=== PATIENT | female | born 1975 | race Caucasian/White ===

== ENCOUNTER 2020-07-22 05:58 | Observation (INO) ==
--- NOTE | 2020-07-01 12:20 | Anesthesiology Consultation ---
Date of Service July 01, 2020 Assessment & Plan (1) Encounter for pre-operative examination: - Per assessment on 07/01: Travel screen negative. No known COVID-19 positive contacts or current COVID-19 related symptoms. Surgeon arranging preop COVID testing (scheduled 07/16). Awaiting results. - Check test AM DOS - S/P D&C, hysteroscopy, IUD insertion: 05/03/19: [place] [facility] [place]ONV: significant improvement with 04/2019 D&C/hysteroscopy when scope patch used. Scope patch ordered for AM DOS. Chart Review Chart Review: Acceptable Risk for Surgery and Patient seen in Pre Admission Testing Teaching & Discussion Pre-Anesthesia Teaching/Discussion Notes: Instructed NPO after midnight before surgery,except medications with 15 cc of water. Medication instructions provided according to the PAT guidelines. History Surgery Operation Date: 07/22/20 07:30 Proposed Procedures p Robotic Total Laparoscopic Hysterectomy - Magi Garcia MD Height/Weight Height: 5 ft 7 in Weight: 76.7 kg Allergies Allergy/AdvReac Type Severity Reaction Status Date / Time No Known Drug Allergies Allergy Verified 07/01/20 10:56 Medications Home Medications Medication Instructions Recorded Confirmed Last Taken No Known Home Medications 03/17/19 07/01/20 Unknown Past Medical History Medical History Leiomyoma of uterus Menorrhagia with irregular cycle Migraine Exercise / Class Metabolic Activity II 4-5 Yardwork/Stairs/Walk up hill Past Family History Family History Mother Breast cancer, Onset Age: 50 Heart disease Father Family hx of colon cancer Sister Breast cancer, Onset Age: 53 Other Hypertension Past Surgical History Surgical History History of dilatation and curettage D&C, hysteroscopy, IUD insertion: 05/03/19: [place] [facility] [place] of hysteroscopy with resection of fibroid tumor excisions History of tooth extraction Previous section x3 S/P bilateral breast reduction Past Anesthesia History No Hx of Anesthesia Complications (except PONV) and No Family Hx of Anesthesia Complications (except mother post-op N/V) History of PONV No Hx of Motion Sickness and History of PONV (significant improvement with 04/2019 D&C/hysteroscopy when scope patch used) Social History Smoking Status: Never smoker Do You Dip or Chew Tobacco: No Hx Alcohol Use: Yes Alcohol type: beer alcohol intake frequency: a few times a month Hx Substance Use: No substance use type: does not use Review of Systems Patient denies chest pain, shortness of breath, dyspnea on exertion, fever, chills, cough, wheezing, palpitations. Physical Exam Vital Signs VITALS BP 105/73 P 70 TEMP 97.9 SP02 100%RA RESP 16 PHYSICAL Full neck and c-spine range of motion. Full TMJ range of motion. TMD 3 finger breaths Mallampati Score 2 Dentition: intact, + crowns (molars) Lungs: clear throughout to auscultation Cardiac: regular rate and rhythm, no murmurs noted Spine: normal Extremities: no edema Testing Laboratory Results 07/01/20 12:59 Blood Type O Negative 07/01/20 12:59 Antibody Screen NEGATIVE 07/01/20 12:59
[2020-07-01 14:13] LABS: Basophils # (auto) 0.05 K/uL (0-0.2); Basophils % (auto) 0.5 %; Eosinophils # (auto) 0.09 K/uL (0-0.5); Hematocrit (blood only) 39.6 % (37-47); Hemoglobin 13.4 g/dL (12.0-16.0); Immature Granulocytes # (auto) 0.03 K/uL (0.00-0.02); Immature Granulocytes % (auto) 0.3 %; Lymphocytes # (auto) 1.83 K/uL (1.2-3.4); Lymphocytes % (auto) 19.5 %; Mean Corpuscular Hemoglobin 32.1 pg (25-34); Mean Corpuscular Hgb Conc 33.8 g/dL (32-36); Mean Corpuscular Volume 94.7 fL (80-100); Mean Platelet Volume 10.5 fL (7.4-10.4); Monocytes # (auto) 0.79 K/uL (0.11-0.59); Monocytes % (auto) 8.4 %; Neutrophils % (auto) 70.3 %; Platelet Count 266 K/uL (130-400); RDW Coefficient of Variation 12.9 % (11.5-14.5); RDW Standard Deviation 44.8 fL (36.4-46.3); Red Blood Count 4.18 M/uL (4.2-5.4); White Blood Count 9.39 K/uL (4.8-10.8)
[2020-07-22] MEDS ORDERED: LR 15ML/HR IV SCH (06:00)
[2020-07-22] MEDS ORDERED: LACTATED RINGER'S 1,000 ML IV SCH ×2 (06:00→08:45)
[2020-07-22] MEDS ORDERED: ceFAZolin 2000MG 2,000 MG/15 ML SYR IV SCH (06:00)
[2020-07-22] MEDS ORDERED: ACETAMINOPHEN 1000 MG/100 ML IV IV ONE (06:22)
[2020-07-22] MEDS ORDERED: SCOPOLAMINE 1.5 MG TDSY TD ONE (06:34)
[2020-07-22] MEDS ORDERED: fentaNYL citrate 100 MCG/2 ML VIAL ONE (06:35)
[2020-07-22] MEDS ORDERED: MIDAZOLAM HCL 1 MG/ML 2ML VIAL ONE (06:35)
[2020-07-22] MEDS ORDERED: HYDROmorphone INJ 2 MG/ML SYR/VIAL ONE (06:40)
[2020-07-22] MEDS ORDERED: ROCURONIUM BROMIDE 10 MG/ML 5 ML VIAL IV ONE (06:45)
[2020-07-22] MEDS ORDERED: LIDOCAINE HCL 2% 2 ML VIAL/AMP(20MG/ML) INFIL ONE (06:45)
[2020-07-22] MEDS ORDERED: ONDANSETRON INJ 2 MG/ML 2 ML VIAL ONE (06:45)
[2020-07-22] MEDS ORDERED: DEXAMETHASONE SOD INJ 4 MG/ML VIAL ONE (06:45)
[2020-07-22] MEDS ORDERED: PROPOFOL IV EMULSION 10 MG/ML 20 ML VIAL IV ONE (06:45)
[2020-07-22] MEDS ORDERED: SUGAMMADEX SODIUM 200 MG/2 ML VIAL IV ONE (06:46)
[2020-07-22] MEDS ORDERED: ATROPINE SULFATE 0.1 MG/ML 10ML SYR IV PRN (07:27)
[2020-07-22] MEDS ORDERED: HYDROmorphone INJ 2 MG/ML SYR/VIAL IV PRN (07:27)
[2020-07-22] MEDS ORDERED: ePHEDrine sulfate 50 MG/ML AMP IV PRN (07:27)
[2020-07-22] MEDS ORDERED: ONDANSETRON INJ 2 MG/ML 2 ML VIAL IV PRN ×2 (07:27→07:32)
[2020-07-22] MEDS ORDERED: PROMETHAZINE HCL 6.25 MG in SODIUM CHLORIDE 0.9% 50 ML IV PRN (07:27)
[2020-07-22] MEDS ORDERED: PROMETHAZINE HCL 25 MG in SODIUM CHLORIDE 0.9% 50 ML IV PRN (07:32)
[2020-07-22] MEDS ORDERED: PROMETHAZINE HCL 12.5 MG in SODIUM CHLORIDE 0.9% 50 ML IV PRN (07:32)
[2020-07-22] MEDS ORDERED: KETOROLAC 30 MG/ML VIAL IV PRN (07:32)
[2020-07-22] MEDS ORDERED: ACETAMINOPHEN 325 MG TAB PO PRN (07:32)
[2020-07-22] MEDS ORDERED: MAGNESIUM HYDROXIDE SUSP 30 ML UDC PO PRN (07:32)
[2020-07-22] MEDS ORDERED: oxyCODONE/ACETAMINOPHEN 5mg/325mg TAB PO PRN (07:32)
[2020-07-22] MEDS ORDERED: MEPERIDINE HCL 50 MG/ML CARP IV PRN (07:32)
[2020-07-22] MEDS ORDERED: MEPERIDINE HCL 25 MG/ML CARP/VIAL IV PRN (07:32)
--- NOTE | 2020-07-22 07:32 | History & Physical Bridge Note ---
Date of Service July 22, 2020 History & Physical Bridge Note I have examined the patient, reviewed the History & Physical and in the interval since the performance of the History & Physical I have noted the following changes of clinical significance: no changes noted
[2020-07-22] MEDS ORDERED: KETOROLAC 30 MG/ML VIAL ONE (08:21)
[2020-07-22] MEDS ORDERED: METHYLENE BLUE IV STA (08:41)
[2020-07-22] MEDS ORDERED: DEXTROSE 5% IV STA (08:41)
--- NOTE | 2020-07-22 09:04 | Operative Report ---
PG Post Operative Report Pre & Post Diagnosis Operation Date: 07/22/20 07:30 Pre-Op Diagnosis: Fibroids, menorrhagia, failed multiple myomectomies and Mirena IUD placement Post-Op Diagnosis: Same I identified the patient and participated in the time-out.: Yes Procedure Operation Date: 07/22/20 07:30 Actual Procedures p Robotic Total Laparoscopic Hysterectomy, Bilateral Salpingectomy, cystoscopy - Magi Garcia MD Surgeon Magi Garcia MD Trimmer And Reinforcer None Estimated Blood Loss 25 Findings Consistent with Post-Op Diagnosis Specimens Uterus, Cervix, bilateral fallopian tubes Anesthesia Type General Complications none Disposition Accompanied Patient To Recovery: Yes Disposition: Recovery Room Description of Procedure The patient was brought to the operating room and placed on the table in dorsal lithotomy position with yellofin stirrups, prepped and draped in standard sterile fashion, and a hard time out was taken prior to proceeding. The bladder was emptied via placement of parmar catheter. The patient's mirena was removed intact, and then a V-Geekatoo uterine manipulator was placed in the usual manner. Attention was then turned to the abdomen where optical entry was made at the umbilicus without complication. The abdomen was insufflated and the patient was placed in steep Trendelenburg. Under direct visualization, right and left lower quadrant ports were placed without complication. Survey of the abdomen revealed thick adhesion to the left anterior uterine wall, evidence of prior tubal ligation, otherwise essentially normal anatomy. The robot was then docked and surgery proceeded with the surgeon at the console. The ureter was identified on each side and traced along its course into the pelvis. Each fallopian tube in turn was elevated, dissected off the mesosalpinx and left attached to the uterine cornu. Each utero-ovarian ligament was ligated and then divided. Each round ligament was ligated and then divided. The anterior leaflets of the broad ligament were dissected to create a bladder flap which was gently mobilized downward below the colpotomy cup ridge. Notably, during bladder flap creation, the anterior adhesion was divided - and at the base of this adhesion a small exophytic fibroid was revealed. Each uterine artery was skeletonized, ligated, and then divided. Circumferential colpotomy was then completed following the colpotomy cup guide. The cervix, uterus and bilateral tubes were then retrieved en bloc via the vagina. The vaginal cuff was then closed using V-Carolina suture in the typical running non-locked fashion. The needle was retrieved through a trocar, and suction/irrigation was then used to remove any debris and ensure good hemostasis at all working sites. After administration of IV Methylene Blue dye, cystoscopy was then utilized to examine the bladder dome which was free of suture or injury. The ureteral orifices were observed until a good strong jet of blue stained urine was seen from each. The bladder was then drained. The robot was then undocked, and abdominal trocar sites were closed using a UR6 at the umbilical fascia and 4-0 monocryl at each of the skin incisions. A dermabond dressing was applied to each site. A final vaginal exam ensured no materials were present in the vagina and the cuff was intact. The patient was then transferred in stable condition to the recovery room. I attest to the content of the Intraoperative Record and any orders documented therein. Any exceptions are noted below. SERVICE OFFICER Major Procedure Codes Hysterectomy 72029 TLH <250g +S/O
[2020-07-22] MEDS: fentaNYL citrate 100 MCG/2 ML VIAL IV PRN ×2 (09:27→09:32)
--- NOTE | 2020-07-22 09:57 | Anesthesiology Progress Note ---
Date of Service July 22, 2020 Anesthesia Post Procedure Vital Signs Vital Signs: Temp Pulse Pulse Resp BP Pulse Ox 07/22/20 09:50 36.3 C L 71 16 118/76 98 07/22/20 09:40 75 18 127/79 98 07/22/20 09:30 78 14 122/77 100 07/22/20 09:20 93 H 16 127/77 100 07/22/20 09:14 36.1 C L 72 14 99/69 L 99 07/22/20 06:16 36.9 C 80 16 119/90 97 Pain Intensity Abdomen: Pain Intensity: 3 Transfer of Care Handoff Completed per policy Notes Mental Status: alert / awake / arousable Patient Amnestic to Procedure: Yes Nausea / Vomiting: adequately controlled Pain: adequately controlled Airway Patency, RR, SpO2: stable & adequate BP & HR: stable & adequate Hydration State: stable & adequate Anesthetic Complications: no major complications apparent
[2020-07-22] MEDS: DOCUSATE SODIUM 100 MG CAP PO SCH ×2 (12:19→21:40)
[2020-07-22] MEDS: oxyCODONE/ACETAMINOPHEN 5mg/325mg TAB PO PRN ×2 (12:19→16:24)
[2020-07-22 15:55] LABS: Hematocrit (blood only) 38.3 % (37-47); Hemoglobin 13.2 g/dL (12.0-16.0)
[2020-07-22] MEDS ORDERED: COUGH DROP (SUGAR FREE) LOZ 24 LOZ/1 BOX BUCCAL ONE (16:19)
[2020-07-22] MEDS: SIMETHICONE 80 MG CHEW PO PRN ×2 (16:22→21:40)
[2020-07-22] MEDS: IBUPROFEN 600 MG TAB PO PRN (16:24)
[2020-07-23] MEDS: IBUPROFEN 600 MG TAB PO PRN ×2 (00:41→08:28)
--- NOTE | 2020-07-23 07:11 | Gynecologic Progress Note ---
Date of Service July 23, 2020 Assessment & Plan (1) Leiomyoma of uterus: Hysterectomy yesterday without complications; post op course with nausea and vomiting that has now gotten under control. Regular diet this AM and OK for home. Admission and Anticipated Discharge Date Admission Date: July 22, 2020 Subjective Feeling better this morning, able to tolerate crackers o/n without emesis after having phenergan and some sleep. Voiding, ambulating, pain well controlled. Wants to go home today. Physical Exam Constitutional: WD/WN, vitals as above Eyes: PERRL, conjunctivae normal, anicteric sclerae ENMT: external ear and nose normal, oropharynx normal Neck: supple Respiratory: normal respiratory effort and able to speak in complete sentences; no respiratory distress Cardiovascular: Rate/Rhythm: regular rate and regular rhythm Gastrointestinal (Abdomen): normal bowel sounds, soft, nontender, no hepatosplenomegaly Inspection/Auscultation: + abdominal surgical incision (c/d/i x3 with glue) Musculoskeletal: no cyanosis or clubbing, extremities motor strength 5/5 Skin: no rashes, warm and dry Psychiatric: A+Ox3, euthymic affect Genitourinary: No VB Lymphatic: no cervical or axillary lymphadenopathy Results & Data ([facility]) Vital Signs (Past 12 Hours) Vital Signs Temp Pulse Resp BP Pulse Ox 07/23/20 05:00 98.1 F 78 17 101/67 97 07/23/20 00:30 99.3 F 90 17 115/69 96 07/22/20 19:30 98.8 F 77 18 121/76 96 PG Care Time/CCT Total # of Minutes Spent Total Time Spent with Patient: Total time spent is greater than 50% in coordination of care (as documented) at patient's floor/unit and/or counseling patient: Coding Level of Care Code None Diagnoses Leiomyoma of uterus D25.9
--- NOTE | 2020-07-23 07:12 | Discharge Summary ---
Date of Service July 23, 2020 Discharge Data Procedures Performed Operation Date: 07/22/20 07:30 Actual Procedures p Robotic Total Laparoscopic Hysterectomy, Bilateral Salpingectomy, - Magi Garcia MD s Cystoscopy - Magi Garcia MD Hospital Course (1) Leiomyoma of uterus: Hysterectomy yesterday without complications; post op course with nausea and vomiting that has now gotten under control. Regular diet this AM and OK for home. Percocet #20 sent as usual, plan for 2 and 6 week post op follow up. Coding Level of Care Code D/C Day Management <30 mins Diagnoses Leiomyoma of uterus D25.9
--- NOTE | 2020-07-23 08:08 | Anesthesiology Progress Note ---
Date of Service July 23, 2020 Anesthesia Post Procedure Vital Signs Vital Signs: Temp Pulse Pulse Resp BP Pulse Ox 07/23/20 07:58 37.1 C 96 H 18 110/63 98 07/23/20 05:00 36.7 C 78 17 101/67 97 07/23/20 00:30 37.4 C 90 17 115/69 96 07/22/20 19:30 37.1 C 77 18 121/76 96 07/22/20 16:00 37.3 C 90 18 125/75 07/22/20 13:15 36.4 C L 69 18 110/71 98 07/22/20 12:15 36.6 C 70 18 117/75 98 07/22/20 11:45 72 16 119/79 98 07/22/20 10:15 36.5 C 78 16 122/77 95 07/22/20 10:00 76 13 121/72 98 07/22/20 09:50 36.3 C L 71 16 118/76 98 07/22/20 09:40 75 18 127/79 98 07/22/20 09:30 78 14 122/77 100 07/22/20 09:20 93 H 16 127/77 100 07/22/20 09:14 36.1 C L 72 14 99/69 L 99 Notes Mental Status: alert / awake / arousable and participated in evaluation Patient Amnestic to Procedure: Yes Nausea / Vomiting: improving with treatment (Nauseated following po pain medicine. Nausea improved following treatment with antiemetics.) Pain: adequately controlled Airway Patency, RR, SpO2: stable & adequate BP & HR: stable & adequate Hydration State: stable & adequate Anesthetic Complications: no major complications apparent
[2020-07-23] MEDS: DOCUSATE SODIUM 100 MG CAP PO SCH (08:26)
== END 2020-07-23 10:15 | disposition home or self-care (01) ==
LOC: ASU 05:58 → 4S2 05:58